=== PATIENT | female | born 1985 | race Two or more races ===

== ENCOUNTER 2023-01-28 17:58 | Emergency (ER) | payer OTHER ==
[~2023-01-28] VITALS: Ht 165.1 cm; Wt 84.4 kg
[2023-01-28 20:29] LABS: HEMOGLOBIN 11.7 g/dL (12.0-15.00); MEAN CELL VOLUME 84.4 fL (80.00-100.00); MEAN CORPUSCULAR HEMOGLOBIN 26.8 pg (27.00-32.0); MEAN CORPUSCULAR HGB CONC 31.7 g/dl (32.0-36.0); PLATELET COUNT 229 K/uL (150-450); RED BLOOD COUNT 4.38 M/uL (4.00-6.00); RED CELL DISTRIBUTION WIDTH 13.7 % (11.5-14.5)
== END 2023-01-28 22:10 | disposition home or self-care (01) ==
LOC: ER 17:58
DX: R05.9 Cough, unspecified (principal)

== ENCOUNTER → 2023-06-09 | Emergency (ER) | payer OTHER ==
[~2023-06-09] VITALS: Ht 162.6 cm; Wt 77.1 kg
[~2023-06-09] MED LIST: CLONAZEPAM1 M1 PO; LAMOTRIGINE200 MG PO; MEPERIDINE HCL 25 MG/ML AMPUL IM STA
[2023-06-09 11:20] LABS: HEMATOCRIT 36.4 % (36.0-45.00); MEAN CELL VOLUME 80.6 fL (80.00-100.00); MEAN CORPUSCULAR HEMOGLOBIN 26.6 pg (27.00-32.0); MEAN CORPUSCULAR HGB CONC 32.9 g/dl (32.0-36.0); PLATELET COUNT 156 K/uL (150-450); RED BLOOD COUNT 4.52 M/uL (4.00-6.00); RED CELL DISTRIBUTION WIDTH 15.7 % (11.5-14.5)
[2023-06-09 12:08] LABS: ANION GAP 7 (10.0-20.0); BLOOD UREA NITROGEN 17 mg/dL (7-18); BUN CREA RATIO 22 (7.0-25.0); CALCIUM 9.2 mg/dL (8.5-10.1); CARBON DIOXIDE 29 mEq/L (21-32); CHLORIDE 107 mmol/L (98-107); CREATININE SERUM 0.76 mg/dL (0.55-1.02); GFR 85.63; GLUCOSE FASTING 98 mg/dL (65-100); OSMOLALITY SERUM 279 MOSM/KG (275-295); POTASSIUM 3.85 mEq/L (3.5-5.1); SODIUM 139 mmol/L (136-145)
[2023-06-09 12:09] LABS: HCG QUANTITATIVE < 1 mUI/mL (1-3)
[2023-06-09 13:58] LABS: URINE APPEARANCE Clear; URINE BILIRRUBIN Negative (NEGATIVE); URINE BLOOD Small; URINE COLOR Yellow; URINE GLUCOSE Negative (NEGATIVE); URINE LEUKOCYTE Small; URINE NITRATE Negative; URINE PROTEIN Negative (NEGATIVE); URINE UROBILINOGEN 0.2 E.U./dl
[2023-06-09 14:01] LABS: URINE BACTERIA 267.1 uL (0.0-1933); URINE EPITHELIAL CELLS 9.4 uL (0.0-38.8); URINE RBC 40.8 uL (0.0-20.8); URINE WBC 217.5 uL (0.0-23.2)
== END | disposition home or self-care (01) ==
LOC: ER 09:57
PROVIDERS: General Practice
DX: N93.9 Abnormal uterine and vaginal bleeding, unspecified (principal); I10 Essential (primary) hypertension; Z88.8 Allergy status to other drugs, medicaments and biological substances

== ENCOUNTER → 2023-07-24 | Emergency (ER) | payer OTHER ==
[~2023-07-24] VITALS: Ht 165.1 cm; Wt 68.0 kg
[~2023-07-24] MED LIST changes: +ACETAMINOPHEN 500 MG GEL..CAP PO STA; +ALBUTEROL0.63 MG/3; +LAMICTAL5 MG PO; -MEPERIDINE HCL 25 MG/ML AMPUL IM STA; +SYNTHROID88 MCG PO; +ZOLOFT50 MG PO
[2023-07-24 17:48] LABS: HEMATOCRIT 32.3 % (36.0-45.00); HEMOGLOBIN 10.7 g/dL (12.0-15.00); MEAN CELL VOLUME 78.3 fL (80.00-100.00); MEAN CORPUSCULAR HEMOGLOBIN 26.1 pg (27.00-32.0); MEAN CORPUSCULAR HGB CONC 33.3 g/dl (32.0-36.0); PLATELET COUNT 161 K/uL (150-450); RED BLOOD COUNT 4.12 M/uL (4.00-6.00)
== END | disposition home or self-care (01) ==
LOC: ER 14:50
PROVIDERS: Emergency Medicine
DX: B34.9 Viral infection, unspecified (principal); J32.9 Chronic sinusitis, unspecified; Z88.8 Allergy status to other drugs, medicaments and biological substances